=== PATIENT | female | born 1955 | race Caucasian/White ===

== ENCOUNTER → 2022-10-14 | Outpatient (CLI) | payer MEDICARE | LOC: M PLAIMG 13:53 | DX: M25.561 Pain in right knee (principal) ==

== ENCOUNTER → 2022-10-15 | Outpatient (CLI) | payer MEDICARE | LOC: M WHC 10:34 → EDUNIT# 11:00 | PROVIDERS: ATTEND Internal Medicine | DX: Z12.31 Encounter for screening mammogram for malignant neoplasm of breast (principal); Z13.820 Encounter for screening for osteoporosis; M85.89 Other specified disorders of bone density and structure, multiple sites ==

== ENCOUNTER → 2023-04-16 | Outpatient (REF) | payer MEDICARE | LOC: CANPREREF → M LAB REF 15:07 | PROVIDERS: ATTEND Internal Medicine Gastroenterology | DX: R19.4 Change in bowel habit (principal); Z53.9 Procedure and treatment not carried out, unspecified reason ==

== ENCOUNTER → 2023-04-16 | Outpatient (REF) | payer MEDICARE | LOC: M LAB REF 15:08 | PROVIDERS: ATTEND Internal Medicine | DX: R19.7 Diarrhea, unspecified (principal) ==

== ENCOUNTER → 2023-04-17 | Outpatient (CLI) | payer MEDICARE | LOC: M PLARAD 09:18 | PROVIDERS: ATTEND Internal Medicine | DX: M54.50 Low back pain, unspecified (principal) ==

== ENCOUNTER 2023-06-30 07:48 | Day surgery (SDC) | payer MEDICARE ==
[~2023-06-30] VITALS: Ht 165.1 cm; Wt 78.3 kg
[~2023-06-30 07:48] MED LIST: ALPR1TAB3 PO; AMLO1TAB24 PO; B-12100010 PO; BARI1CAP PO; BIOT5TAB3 PO; CREO3600 PO; ELDE350C PO; LEVO50TA5 PO; LEXA1TAB2 PO; VITA50TA47 PO
[2023-06-30] MEDS: NS 1,000 ML IV ONE (08:15)
[2023-06-30 10:09] VITALS: BP 96/59; TEMP 97.5; O2SAT 98
== END 2023-06-30 10:20 | disposition home or self-care (01) ==
LOC: M OPP 07:48
PROVIDERS: ATTEND Internal Medicine Gastroenterology
DX: K63.5 Polyp of colon (principal); K64.8 Other hemorrhoids; Q43.8 Other specified congenital malformations of intestine; R19.4 Change in bowel habit; E03.9 Hypothyroidism, unspecified; I10 Essential (primary) hypertension; Z98.84 Bariatric surgery status; Z79.890 Hormone replacement therapy; Z79.899 Other long term (current) drug therapy

== ENCOUNTER → 2023-07-08 | Outpatient (CLI) | payer MEDICARE | LOC: M PLAIMG 08:18 | PROVIDERS: ATTEND Internal Medicine | DX: R10.13 Epigastric pain (principal); K86.81 Exocrine pancreatic insufficiency; K44.9 Diaphragmatic hernia without obstruction or gangrene; Z98.84 Bariatric surgery status; Z90.49 Acquired absence of other specified parts of digestive tract ==

== ENCOUNTER → 2023-10-23 | Outpatient (REF) | payer MEDICARE ==
[2023-10-23 17:20] LABS: APPEARANCE, URINE CLOUDY (CLEAR); BACTERIA, URINE AUTO 1+ (NEGATIVE); BILIRUBIN, URINE AUTO NEGATIVE (NEGATIVE); BLOOD, URINE BLOOD NEGATIVE (NEGATIVE); CALCIUM OXALATE CRYSTALS LARGE; COLOR, URINE AMBER (YELLOW); GLUCOSE, URINE (UA) AUTO NEGATIVE (NEGATIVE); KETONE, URINE AUTO TRACE mg/dL (NEGATIVE); LEUKOCYTE ESTERASE, URINE AUTO 3+ (NEGATIVE); MUCUS, URINE SMALL (NEGATIVE); NITRITE, URINE AUTO NEGATIVE (NEGATIVE); PROTEIN, URINE AUTO 1+ mg/dL (NEGATIVE); RBC, URINE AUTO 22 /HPF (0-3); SPECIFIC GRAVITY URINE AUTO 1.021 (1.002-1.035); SQUAMOUS EPITHELIAL CELL UR AU 0 /HPF (0-6); WBC, URINE AUTO TNTC /HPF (0-3)
== END ==
LOC: M LAB REF 16:17
PROVIDERS: ATTEND Physician Assistant
DX: N39.0 Urinary tract infection, site not specified (principal)

== ENCOUNTER → 2024-06-29 | Outpatient (CLI) | payer MEDICARE | LOC: M WHC 10:45 | PROVIDERS: ATTEND Internal Medicine | DX: Z12.31 Encounter for screening mammogram for malignant neoplasm of breast (principal); D50.9 Iron deficiency anemia, unspecified; Z98.84 Bariatric surgery status; Z79.899 Other long term (current) drug therapy ==

== ENCOUNTER → 2024-06-29 | Outpatient (REF) | payer MEDICARE ==
[2024-06-29 15:11] LABS: IRON (FE) 38 UG/DL (50-170); PERCENT SATURATION 10.4 % (13.2-45.0); PHOSPHORUS LEVEL 4.4 MG/DL (2.4-5.1); TOTAL IRON BINDING CAPACITY 364 UG/DL (250-425)
[2024-06-29 15:12] LABS: FERRITIN 3.9 NG/ML (7.3-270.7); TOTAL 25(OH) VITAMIN D 51.6 NG/ML (20.0-100.0)
[2024-06-29 15:13] LABS: FOLATE 23.3 NG/ML (>5.4); VITAMIN B12 LEVEL > 2000 PG/ML (211-911)
== END ==
LOC: M LAB REF 14:25
PROVIDERS: ATTEND Internal Medicine
DX: D64.9 Anemia, unspecified (principal); Z98.84 Bariatric surgery status; Z79.899 Other long term (current) drug therapy

== ENCOUNTER → 2024-12-16 | Outpatient (REF) | payer MEDICARE ==
[2024-12-16 12:37] LABS: IRON (FE) 40.0 UG/DL (50-170); PERCENT SATURATION 10.4 % (13.2-45.0)
== END ==
LOC: M LAB REF 12:08
PROVIDERS: ATTEND Internal Medicine
DX: D50.9 Iron deficiency anemia, unspecified (principal)

== ENCOUNTER → 2025-01-13 | Outpatient (CLI) | payer MEDICARE ==
[~2025-01-13] MED LIST changes: +GABA-1171 PO; +MULT-40 PO; +ONDA-282 PO
== END ==
LOC: M PLARAD 10:26
PROVIDERS: ATTEND Internal Medicine
DX: D37.8 Neoplasm of uncertain behavior of other specified digestive organs (principal); K62.3 Rectal prolapse

== ENCOUNTER 2025-01-14 07:32 | Emergency (ER) | payer MEDICARE ==
[~2025-01-14] VITALS: Ht 165.1 cm; Wt 76.0 kg
[~2025-01-14 07:32] MED LIST changes: -GABA-1171 PO; -MULT-40 PO; -ONDA-282 PO
[2025-01-14 08:12] LABS: BASO # 0.0 10^3/uL (0.0-0.2); BASO % 0.3 % (0.0-1.0); EOS # 0.1 10^3/uL (0.0-0.5); EOS % 0.6 % (0.0-3.0); LYMPH # 0.5 10^3/uL (1.5-5.0); LYMPH % 6.9 % (24.0-44.0); MONO # 0.4 10^3/uL (0.0-0.8); MONO % 4.9 % (2.0-8.0); NEUTROPHILS # 6.8 10^3/uL (1.5-8.5); NEUTROPHILS % 87.0 % (36.0-66.0); PLATELET COUNT, AUTOMATED 278 10^3/uL (150-450)
[2025-01-14 08:37] LABS: ALT/SGPT 37.0 U/L (7.0-40); AST/SGOT 33.0 U/L (<34); CALCIUM LEVEL 8.8 MG/DL (8.3-10.6); CARBON DIOXIDE LEVEL 29.0 MMOL/L (20-31); CHLORIDE LEVEL 104.0 MMOL/L (98-107); CREATININE FOR GFR 0.82 MG/DL (0.55-1.30); GLOMERULAR FILTRATION RATE 76.4 (>39); POTASSIUM SERUM 3.7 MMOL/L (3.5-5.1); SODIUM LEVEL 144.0 MMOL/L (136-145)
[2025-01-14] MEDS ORDERED: GABA-1171 PO (08:50)
[2025-01-14] MEDS ORDERED: MULT-40 PO (08:51)
[2025-01-14] MEDS ORDERED: LEXA1TAB2 PO (08:51)
[2025-01-14] MEDS ORDERED: HOME MED LIST COMPLETE! XX SCH (08:55)
[2025-01-14] MEDS: NS 500 ML IV ONE (09:35)
[2025-01-14 14:28] LABS: APPEARANCE, URINE CLEAR (CLEAR); BACTERIA, URINE AUTO NEGATIVE (NEGATIVE); BILIRUBIN, URINE AUTO NEGATIVE (NEGATIVE); BLOOD, URINE BLOOD NEGATIVE (NEGATIVE); GLUCOSE, URINE (UA) AUTO NEGATIVE (NEGATIVE); KETONE, URINE AUTO TRACE mg/dL (NEGATIVE); LEUKOCYTE ESTERASE, URINE AUTO TRACE (NEGATIVE); NITRITE, URINE AUTO NEGATIVE (NEGATIVE); PROTEIN, URINE AUTO NEGATIVE (NEGATIVE); RBC, URINE AUTO 5 /HPF (0-3); SPECIFIC GRAVITY URINE AUTO 1.013 (1.002-1.035); SQUAMOUS EPITHELIAL CELL UR AU 0 /HPF (0-6); UROBILINOGEN, URINE AUTO 4.0 mg/dL (0.0-2.0); WBC, URINE AUTO 1 /HPF (0-3)
[2025-01-14 14:30] VITALS: TEMP 99.1
[2025-01-14 15:00] VITALS: BP 130/75; O2SAT 94
[2025-01-14] MEDS ORDERED: ONDA-282 PO (15:06)
== END 2025-01-14 15:42 | disposition home or self-care (01) ==
LOC: M ED 07:32 → EDBD 07:32 → M ED 15:42
DX: A08.4 Viral intestinal infection, unspecified (principal); F10.10 Alcohol abuse, uncomplicated; K64.9 Unspecified hemorrhoids; J98.11 Atelectasis; G43.909 Migraine, unspecified, not intractable, without status migrainosus; E03.9 Hypothyroidism, unspecified; F32.A Depression, unspecified; F41.9 Anxiety disorder, unspecified; Z98.84 Bariatric surgery status; Z79.899 Other long term (current) drug therapy